=== PATIENT | female | born 1945 | race Caucasian/White ===

== ENCOUNTER → 2017-09-28 | Outpatient (CLI) | payer OTHER, MEDICARE | END | disposition home or self-care (01) | LOC: RAH 14:54 | PROVIDERS: ATTEND Internal Medicine | DX: R10.13 Epigastric pain (principal); M51.36 Other intervertebral disc degeneration, lumbar region | CPT/HCPCS: 74021; 76700 ==

== ENCOUNTER → 2018-04-28 | Outpatient (CLI) | payer OTHER, MEDICARE | END | disposition home or self-care (01) | LOC: RAH 15:51 | PROVIDERS: ATTEND Internal Medicine | DX: J44.9 Chronic obstructive pulmonary disease, unspecified (principal); M47.815 Spondylosis without myelopathy or radiculopathy, thoracolumbar region | CPT/HCPCS: 71046 ==

== ENCOUNTER → 2021-01-13 | Outpatient (CLI) | payer OTHER | END | disposition home or self-care (01) | LOC: SHCH 14:24 | PROVIDERS: ATTEND Internal Medicine Cardiovascular Disease | DX: R06.00 Dyspnea, unspecified (principal) | CPT/HCPCS: 93306; 93356 ==

== ENCOUNTER → 2021-03-03 | Outpatient (CLI) | payer OTHER ==
[~2021-03-03] VITALS: Ht 160 cm; Wt 59.4 kg
[~2021-03-03] MED LIST: REGADENOSON 0.4 MG/5 ML PF SYG IVP SCH
== END | disposition home or self-care (01) ==
LOC: SHCH 07:32
PROVIDERS: ATTEND Internal Medicine Cardiovascular Disease
DX: R06.09 Other forms of dyspnea (principal); I25.10 Atherosclerotic heart disease of native coronary artery without angina pectoris; R05.9 Cough, unspecified
CPT/HCPCS: 78452; 93017; 96374; A9500 ×2; J2785

== ENCOUNTER → 2023-01-27 | Outpatient (CLI) | payer OTHER | END | disposition home or self-care (01) | LOC: SHCH 09:34 | PROVIDERS: ATTEND Internal Medicine Cardiovascular Disease | DX: I65.23 Occlusion and stenosis of bilateral carotid arteries (principal) | CPT/HCPCS: 93880 ==

== ENCOUNTER → 2023-02-03 | Outpatient (CLI) | payer OTHER ==
[2023-02-03 12:38] LABS: CHOLESTEROL 159 mg/dL (<200); HDL CHOLESTEROL 72 mg/dL (35-85); LDL DIRECT 79 mg/dL (0-99); TRIGLYCERIDES 76 mg/dL (30-200)
== END | disposition home or self-care (01) ==
LOC: LAB 08:07
PROVIDERS: ATTEND Internal Medicine Cardiovascular Disease
DX: E78.5 Hyperlipidemia, unspecified (principal); R06.00 Dyspnea, unspecified; Z79.899 Other long term (current) drug therapy
CPT/HCPCS: 36415; 80061

== ENCOUNTER → 2024-02-01 | Outpatient (CLI) | payer OTHER ==
--- NOTE | 2024-02-02 08:36 | HMCSR ---
APPROVED REPORT Laterality: Bilateral Doppler Spectral Velocity Analysis PSV / EDVPSV / EDV ECA (R) 117 / cm/sECA (L) 92 / cm/s dICA (R) 196 / 68 cm/sdICA (L) 136 / 36 cm/s [place]ell (R) 135 / 44 cm/smICA (L) 196 / 60 cm/s pICA (R) 79 / 25 cm/spICA (L) 119 / 48 cm/s dCCA (R) 80 / 21 cm/sdCCA (L) 83 / 28 cm/s mCCA (R) 71 / 21 cm/smCCA (L) 117 / 41 cm/s pCCA (R) 88 / 24 cm/spCCA (L) 87 / 23 cm/s Vert (R) 44 / cm/sVert (L) 65 / cm/s Subl. (R) 262 / cm/sSubl. (L) 150 / cm/s ICA/CCA 2.23ICA/CCA 1.68 Technologist Impression Mild heterogenous plaque noted in the bilateral carotid arteries. There is evidence of 50-69% stenosis in the right internal carotid artery. There is evidence of 50-69% stenosis in the left internal carotid artery. The bilateral vertebral arteries reflect antegrade flow. Elevated velocities noted in the right subclavian artery. Conclusion As above. Conclusion As above.
== END | disposition home or self-care (01) ==
LOC: SHCH 12:26
PROVIDERS: ATTEND Internal Medicine Cardiovascular Disease
DX: I65.23 Occlusion and stenosis of bilateral carotid arteries (principal); I25.10 Atherosclerotic heart disease of native coronary artery without angina pectoris
CPT/HCPCS: 93880